=== PATIENT | male | born 2000 | race Caucasian/White ===

== ENCOUNTER 2022-09-26 08:28 | Emergency (ER) | payer OTHER ==
[~2022-09-26] VITALS: Ht 175.3 cm; Wt 79.5 kg
[2022-09-26 08:32] VITALS: TEMP 97.9
[2022-09-26] MEDS ORDERED: FLUORESCEIN SODIUM 1 MG STRIP ONE (08:52)
[2022-09-26] MEDS ORDERED: PROPARACAINE HCL 0.5% 15 ML OPHTHALMIC SOLUTION OU ONE (09:15)
[2022-09-26] MEDS ORDERED: FLUORESCEIN SODIUM 1 MG STRIP OU ONE (09:15)
[2022-09-26 09:52] VITALS: BP 139/68; PULSE 74; RESP 16
== END 2022-09-26 11:03 | disposition home or self-care (01) ==
LOC: EMS 08:28
DX: H10.212 Acute toxic conjunctivitis, left eye (principal)
CPT/HCPCS: 99283